=== PATIENT | male | born 1990 | race Native Hawaiian/Other Pacific Islander ===

== ENCOUNTER 2020-04-04 10:02 | Emergency (ER) | payer SELFPAY ==
[~2020-04-04] VITALS: Ht 162.6 cm; Wt 140.6 kg
[2020-04-04 10:03] VITALS: BP_SYST 162
[2020-04-04] MEDS ORDERED: LIDOCAINE 1% 10 MG/ML, 20 ML MDV INJ ONE (10:15)
[2020-04-04] MEDS ORDERED: BACITRACIN 1 GM OINT TP ONE (10:15)
[2020-04-04 11:00] VITALS: BP_SYST 142
== END 2020-04-04 11:00 | disposition home or self-care (01) ==
LOC: SED 10:02
DX: S61.411A Laceration without foreign body of right hand, initial encounter (principal); W45.8XXA Other foreign body or object entering through skin, initial encounter; Y93.89 Activity, other specified; Y92.89 Other specified places as the place of occurrence of the external cause; Y99.8 Other external cause status
CPT/HCPCS: 99282

== ENCOUNTER 2020-04-07 09:20 | Emergency (ER) | payer BC ==
[~2020-04-07] VITALS: Ht 170.2 cm; Wt 140.6 kg
[2020-04-07 09:20] VITALS: BP_SYST 125
[2020-04-07 10:35] VITALS: BP_SYST 128
== END 2020-04-07 10:35 | disposition home or self-care (01) ==
LOC: SED 09:20
DX: S61.411D Laceration without foreign body of right hand, subsequent encounter (principal); X58.XXXD Exposure to other specified factors, subsequent encounter
CPT/HCPCS: 99281

== ENCOUNTER 2020-04-13 09:58 | Emergency (ER) | payer BC ==
[~2020-04-13] VITALS: Ht 170.2 cm; Wt 140.6 kg
[2020-04-13 10:03] VITALS: BP_SYST 149
[2020-04-13] MEDS ORDERED: CEPH-568 PO (10:49)
== END 2020-04-13 11:16 | disposition home or self-care (01) ==
LOC: SED 09:58
DX: S61.411D Laceration without foreign body of right hand, subsequent encounter (principal); X58.XXXD Exposure to other specified factors, subsequent encounter
CPT/HCPCS: 99281